=== PATIENT | male | born 1975 | race Hispanic/Latino ===

== ENCOUNTER 2018-04-20 14:30 | Emergency (ER) | payer SELFPAY | END 2018-04-20 16:00 | disposition home or self-care (01) | LOC: EDH 14:30 | DX: S62.316A Displaced fracture of base of fifth metacarpal bone, right hand, initial encounter for closed fracture (principal); E11.9 Type 2 diabetes mellitus without complications; I10 Essential (primary) hypertension; W22.03XA Walked into furniture, initial encounter; Y93.89 Activity, other specified; Y92.89 Other specified places as the place of occurrence of the external cause; Y99.8 Other external cause status | CPT/HCPCS: 29125; 73130 ==

== ENCOUNTER 2020-02-17 16:09 | Inpatient (IN) | payer OTHER, SELFPAY ==
[~2020-02-17] VITALS: Ht 182.9 cm; Wt 113.8 kg
[2020-02-17] MEDS ORDERED: ACETAMINOPHEN 325 MG TAB ONE (17:06)
[2020-02-17] MEDS ORDERED: AZITHROMYCIN 250 MG TABLET PO ONE (19:03)
[2020-02-17] MEDS ORDERED: CEFTRIAXONE SODIUM 1 GM ONE (19:03)
[2020-02-17] MEDS ORDERED: SODIUM CHLORIDE 0.9% 1000ML 1,000 ML IV SCH (19:20)
[2020-02-17] MEDS ORDERED: DIPHENHYDRAMINE HCL 25 MG CAPSULE PO PRN (19:30)
[2020-02-17] MEDS ORDERED: ZOLPIDEM TARTRATE 5 MG TAB PO PRN (19:30)
[2020-02-17] MEDS ORDERED: NITROGLYCERIN 0.4 MG SL TAB SL PRN (19:30)
[2020-02-17] MEDS ORDERED: ERGOCALCIFEROL (VITAMIN D2) 50,000 UNIT CAPSULE PO ONE (19:30)
[2020-02-17] MEDS ORDERED: ACETAMINOPHEN 325 MG TAB PO PRN ×2 (19:30)
[2020-02-17] MEDS ORDERED: MAG HYDROX/AL HYDROX/SIMETH ES 30 ML SUSP UDCUP PO PRN (19:30)
[2020-02-17] MEDS ORDERED: LACTULOSE 20 GM/30 ML UDCUP PO PRN (19:30)
[2020-02-17] MEDS ORDERED: MORPHINE SULFATE 2 MG/ML 1ML SYG IV PRN (19:30)
[2020-02-17] MEDS ORDERED: MAG HYDROX/AL HYDROX/SIMETH 60 ML, LIDOCAINE HCL 2% VISCOUS 60 ML, DIPHENHYDRAMINE HCL ... PO PRN ×3 (19:30)
[2020-02-17] MEDS ORDERED: MORPHINE SULFATE 4 MG/1ML SYG IV PRN (19:30)
[2020-02-17] MEDS ORDERED: ONDANSETRON HCL 4 MG/2 ML VIAL IV PRN (19:30)
[2020-02-17] MEDS ORDERED: DiphenhydrAMINE HCL 50 MG/ML VIAL IV PRN (19:30)
[2020-02-17] MEDS: CEFTRIAXONE SODIUM 1 GM IV SCH (19:30)
[2020-02-17] MEDS: AZITHROMYCIN 500MG+NS 250ML 250 ML IV SCH (19:30)
[2020-02-17] MEDS ORDERED: COMPOUND PO MISCELLANEOUS 1 EACH MISC MISC PRN (20:15)
[2020-02-17] MEDS ORDERED: ACETYLCYSTEINE 600 MG CAPSULE PO SCH (21:00)
[2020-02-17] MEDS: HEPARIN SODIUM 5000UNIT/ML 1ML VIAL SQ SCH (21:00)
[2020-02-17] MEDS: FAMOTIDINE/PF 20 MG/2 ML VIAL IV SCH (21:00)
[2020-02-17] MEDS ORDERED: GLUCAGON 1MG KIT 1 MG ML IM PRN (21:15)
[2020-02-17] MEDS ORDERED: DEXTROSE 50%-WATER 50 ML DISP.SYRIN IV PRN (21:15)
[2020-02-17] MEDS ORDERED: ERGOCALCIFEROL (VITAMIN D2) 50,000 UNIT CAPSULE ONE (21:18)
[2020-02-17] MEDS ORDERED: HEPARIN SODIUM 5000UNIT/ML 1ML VIAL ONE (21:18)
[2020-02-17] MEDS ORDERED: ACETYLCYSTEINE 600 MG CAPSULE ONE ×2 (21:18→21:24)
[2020-02-17] MEDS ORDERED: FAMOTIDINE/PF 20 MG/2 ML VIAL IV ONE (21:19)
[2020-02-17] MEDS: PHARMACY COMMUNICATION**REMDESIVIR ORDER MISC SCH (22:30)
[2020-02-17] MEDS: INSULIN HUMULIN R 100 UNIT/ML 3ML SQ SCH (22:47)
[2020-02-17] MEDS: DEXAMETHASONE SOD PHOSPHATE 4 MG/ML 1ML VIAL IVP SCH (22:48)
[2020-02-17] MEDS: GUAIFENESIN-DM 200/20 MG 10 ML PO PRN (23:00)
[2020-02-18] MEDS ORDERED: ASPI500T19 PO (00:19)
[2020-02-18] MEDS ORDERED: GLYB6TAB PO (00:19)
[2020-02-18] MEDS ORDERED: ENAL20TA PO (00:19)
[2020-02-18] MEDS ORDERED: METF-446 PO (00:19)
[2020-02-18 05:00] VITALS: BP 142/88
[2020-02-18] MEDS: PHARMACY COMMUNICATION**REMDESIVIR ORDER MISC SCH ×4 (06:30→21:30)
[2020-02-18] MEDS: INSULIN HUMULIN R 100 UNIT/ML 3ML SQ SCH ×4 (06:31→21:52)
[2020-02-18 08:30] VITALS: BP 139/83
[2020-02-18] MEDS: ASCORBIC ACID 500 MG TAB PO SCH (08:34)
[2020-02-18] MEDS: ZINC SULFATE 220 CAPSULE PO SCH (08:34)
[2020-02-18] MEDS: DEXAMETHASONE SOD PHOSPHATE 4 MG/ML 1ML VIAL IVP SCH (08:37)
[2020-02-18] MEDS: FAMOTIDINE/PF 20 MG/2 ML VIAL IV SCH ×2 (08:37→20:33)
[2020-02-18] MEDS: ACETYLCYSTEINE 20% 200MG/ML 4ML VIAL PO SCH ×2 (08:54→20:33)
[2020-02-18] MEDS: HEPARIN SODIUM 5000UNIT/ML 1ML VIAL SQ SCH ×3 (08:54→20:41)
[2020-02-18] MEDS ORDERED: PHARMACY COMMUNICATION MISC SCH (09:15)
[2020-02-18] MEDS ORDERED: IOHEXOL-350 75 ML VIAL IV ONE (11:59)
[2020-02-18] MEDS: GUAIFENESIN-DM 200/20 MG 10 ML PO PRN (13:55)
[2020-02-18] MEDS: BENZONATATE 100 MG CAPSULE PO PRN ×2 (13:55→21:20)
[2020-02-18 17:27] VITALS: BP 140/65
--- NOTE | 2020-02-18 17:42 | NUR ---
Patient given 1 unit of convalescent plasma on shift, tolerated well. Will continue to monitor for any changes.
[2020-02-18] MEDS: AZITHROMYCIN 500MG+NS 250ML 250 ML IV SCH (18:46)
[2020-02-18] MEDS: CEFTRIAXONE SODIUM 1 GM IV SCH (18:46)
[2020-02-18 19:30] VITALS: BP 121/78
[2020-02-19] VITALS (7 sets, daily range): BP systolic 125–162; BP diastolic 66–88
[2020-02-19] MEDS: PHARMACY COMMUNICATION**REMDESIVIR ORDER MISC SCH ×4 (03:30→19:26)
--- NOTE | 2020-02-19 04:00 | NUR ---
NURSING ROUNDS PT REPORTS NOT BEING ABLE TO BREATHE FULLY. SpO2 SATS AT 92% ON 4 LPM O2. PLACED PT ON PARTIAL NON-REBREATHER 10 LPM @ 70%, SpO2 INCREASED TO 96-97 %. PT REPORTS THAT HE FEELS "MEJOR" (BETTER). INFORMED PT THAT I WOULD RETURN TO CHECK ON THE PT, ENCOURAGED TO CALL ON THE CALL LIGHT FOR ANY ASSISTANCE- VERBALIZED UNDERSTANDING.
[2020-02-19] MEDS: INSULIN HUMULIN R 100 UNIT/ML 3ML SQ SCH ×4 (06:30→20:13)
[2020-02-19] MEDS: FAMOTIDINE/PF 20 MG/2 ML VIAL IV SCH ×2 (08:38→20:12)
[2020-02-19] MEDS: ACETYLCYSTEINE 20% 200MG/ML 4ML VIAL PO SCH ×2 (08:39→20:12)
[2020-02-19] MEDS: DEXAMETHASONE SOD PHOSPHATE 4 MG/ML 1ML VIAL IVP SCH (08:39)
[2020-02-19] MEDS: ZINC SULFATE 220 CAPSULE PO SCH (08:40)
[2020-02-19] MEDS: ASCORBIC ACID 500 MG TAB PO SCH (08:40)
[2020-02-19] MEDS: HEPARIN SODIUM 5000UNIT/ML 1ML VIAL SQ SCH ×3 (08:41→20:13)
[2020-02-19] MEDS ORDERED: ALBUTEROL INHALER 90MCG/INH IH PRN (08:45)
[2020-02-19] MEDS: ENALAPRIL MALEATE 10 MG TABLET PO SCH (11:44)
--- NOTE | 2020-02-19 17:37 | NUR ---
DCP CM spoke to pt discussed dc plans. Pt is independent prior to admission, lives at home with spouse. Denies any equipments/services. Feels safe to go back home, still drives, spouse able to assist with transportation and needs as necessary. As per pt brother Juarez Castellano JR able to assist as necessary. DC plan to home once stable. CM to cont to follow up. Addendum: 02/19/20 at 1740 by GEOVANNI SOMMERS LVN CM Amended: Links added.
[2020-02-19] MEDS: CEFTRIAXONE SODIUM 1 GM IV SCH (18:47)
[2020-02-19] MEDS: AZITHROMYCIN 500MG+NS 250ML 250 ML IV SCH (18:47)
[2020-02-20] MEDS: PHARMACY COMMUNICATION**REMDESIVIR ORDER MISC SCH ×4 (02:38→20:55)
[2020-02-20 04:00] VITALS: BP 147/76
[2020-02-20] MEDS: INSULIN HUMULIN R 100 UNIT/ML 3ML SQ SCH ×4 (05:14→20:52)
[2020-02-20 07:00] VITALS: BP 136/78
[2020-02-20] MEDS: FAMOTIDINE/PF 20 MG/2 ML VIAL IV SCH ×2 (08:56→20:51)
[2020-02-20] MEDS: ACETYLCYSTEINE 20% 200MG/ML 4ML VIAL PO SCH ×2 (08:56→20:52)
[2020-02-20] MEDS: DEXAMETHASONE SOD PHOSPHATE 4 MG/ML 1ML VIAL IVP SCH (08:56)
[2020-02-20] MEDS: ZINC SULFATE 220 CAPSULE PO SCH (08:57)
[2020-02-20] MEDS: ASCORBIC ACID 500 MG TAB PO SCH (08:57)
[2020-02-20] MEDS: ENALAPRIL MALEATE 10 MG TABLET PO SCH (08:57)
[2020-02-20] MEDS ORDERED: ASPIRIN 325MG EC TAB 325 MG TABLET.DR PO SCH (09:00)
[2020-02-20] MEDS: HEPARIN SODIUM 5000UNIT/ML 1ML VIAL SQ SCH ×3 (10:15→20:52)
[2020-02-20 11:00] VITALS: BP 132/65
[2020-02-20] MEDS ORDERED: PHARMACY COMMUNICATION MISC SCH (13:45)
[2020-02-20] MEDS ORDERED: REMDESIVIR (EUA) 520 200 MG in SODIUM CHLORIDE 0.9% 250 ML IV ONE (14:00)
[2020-02-20] MEDS ORDERED: COMPOUND IV REFRIGERATED 1 EACH IVSOLN MISC PRN (14:00)
[2020-02-20 16:00] VITALS: BP 143/67
[2020-02-20] MEDS: CEFTRIAXONE SODIUM 1 GM IV SCH (18:49)
[2020-02-20 20:42] VITALS: BP 137/76
[2020-02-20 23:25] VITALS: BP 131/71
[2020-02-21] MEDS: PHARMACY COMMUNICATION**REMDESIVIR ORDER MISC SCH ×4 (03:07→19:21)
[2020-02-21 03:30] VITALS: BP 140/68
[2020-02-21] MEDS: PHARMACY COMMUNICATION MISC SCH (04:45)
[2020-02-21] MEDS: INSULIN HUMULIN R 100 UNIT/ML 3ML SQ SCH ×4 (04:45→20:04)
[2020-02-21] MEDS: ZINC SULFATE 220 CAPSULE PO SCH (08:26)
[2020-02-21] MEDS: ENALAPRIL MALEATE 10 MG TABLET PO SCH (08:27)
[2020-02-21] MEDS: ASCORBIC ACID 500 MG TAB PO SCH (08:27)
[2020-02-21] MEDS: ACETYLCYSTEINE 20% 200MG/ML 4ML VIAL PO SCH ×2 (08:28→19:55)
[2020-02-21] MEDS: DEXAMETHASONE SOD PHOSPHATE 4 MG/ML 1ML VIAL IVP SCH (08:28)
[2020-02-21] MEDS: FAMOTIDINE/PF 20 MG/2 ML VIAL IV SCH ×2 (08:28→19:55)
[2020-02-21 08:30] VITALS: BP 133/74
[2020-02-21] MEDS: ENOXAPARIN SODIUM 60 MG/0.6 ML SQ SCH ×2 (08:40→09:08)
[2020-02-21 12:56] VITALS: BP 119/66
[2020-02-21] MEDS: REMDESIVIR (EUA) 520 100 MG in SODIUM CHLORIDE 0.9% 250 ML IV SCH (13:13)
[2020-02-21 16:30] VITALS: BP 114/51
[2020-02-21 20:38] VITALS: BP 137/71
[2020-02-22] VITALS (7 sets, daily range): BP systolic 97–128; BP diastolic 59–76
[2020-02-22] MEDS: PHARMACY COMMUNICATION**REMDESIVIR ORDER MISC SCH ×4 (03:26→19:38)
[2020-02-22] MEDS: PHARMACY COMMUNICATION MISC SCH (03:32)
[2020-02-22] MEDS: INSULIN HUMULIN R 100 UNIT/ML 3ML SQ SCH ×4 (06:07→20:16)
[2020-02-22] MEDS: FAMOTIDINE/PF 20 MG/2 ML VIAL IV SCH ×2 (09:48→20:15)
[2020-02-22] MEDS: ASCORBIC ACID 500 MG TAB PO SCH (09:49)
[2020-02-22] MEDS: ENALAPRIL MALEATE 10 MG TABLET PO SCH (09:49)
[2020-02-22] MEDS: DEXAMETHASONE SOD PHOSPHATE 4 MG/ML 1ML VIAL IVP SCH (09:49)
[2020-02-22] MEDS: ACETYLCYSTEINE 20% 200MG/ML 4ML VIAL PO SCH ×2 (09:49→20:15)
[2020-02-22] MEDS: ZINC SULFATE 220 CAPSULE PO SCH (09:49)
[2020-02-22] MEDS: ENOXAPARIN SODIUM 60 MG/0.6 ML SQ SCH (09:50)
[2020-02-22] MEDS ORDERED: SODIUM POLYSTYRENE SULFONATE 15 GM/60 ML ML PO SCH (14:40)
[2020-02-22] MEDS: REMDESIVIR (EUA) 520 100 MG in SODIUM CHLORIDE 0.9% 250 ML IV SCH (14:46)
[2020-02-22] MEDS: GUAIFENESIN-DM 200/20 MG 10 ML PO PRN (20:16)
[2020-02-22] MEDS: BENZONATATE 100 MG CAPSULE PO PRN (20:16)
[2020-02-23] MEDS: PHARMACY COMMUNICATION**REMDESIVIR ORDER MISC SCH ×5 (03:30→19:58)
[2020-02-23 04:00] VITALS: BP 130/85
[2020-02-23] MEDS: PHARMACY COMMUNICATION MISC SCH (04:57)
[2020-02-23] MEDS: INSULIN HUMULIN R 100 UNIT/ML 3ML SQ SCH ×4 (05:42→19:49)
--- NOTE | 2020-02-23 05:43 | NUR ---
Assessment Overnight, the patient slept majority of the time in prone position. He is still on the partial Non-Rebreather with O2 maintaining above 90s. He had 2 large bowel movements. Patient stated that he does not have any needs or concerns at the moment. Vitals are stable and he is being closely monitored.
[2020-02-23] MEDS ORDERED: LOPERAMIDE HCL 2 MG CAP PO PRN (08:00)
[2020-02-23 08:01] VITALS: BP 130/71
[2020-02-23] MEDS ORDERED: ASPIRIN 500 MG PO SCH (09:00)
[2020-02-23] MEDS: ZINC SULFATE 220 CAPSULE PO SCH (09:08)
[2020-02-23] MEDS: ENALAPRIL MALEATE 10 MG TABLET PO SCH (09:08)
[2020-02-23] MEDS: FAMOTIDINE/PF 20 MG/2 ML VIAL IV SCH ×2 (09:09→19:47)
[2020-02-23] MEDS: ASCORBIC ACID 500 MG TAB PO SCH (09:09)
[2020-02-23] MEDS: DEXAMETHASONE SOD PHOSPHATE 4 MG/ML 1ML VIAL IVP SCH (09:09)
[2020-02-23] MEDS: ACETYLCYSTEINE 20% 200MG/ML 4ML VIAL PO SCH ×2 (09:09→19:47)
[2020-02-23] MEDS: ENOXAPARIN SODIUM 60 MG/0.6 ML SQ SCH (09:10)
[2020-02-23 12:23] VITALS: BP 115/62
[2020-02-23] MEDS: REMDESIVIR (EUA) 520 100 MG in SODIUM CHLORIDE 0.9% 250 ML IV SCH (14:45)
[2020-02-23 15:45] VITALS: BP 108/64
[2020-02-23 20:17] VITALS: BP 107/68
[2020-02-24] VITALS (7 sets, daily range): BP systolic 100–120; BP diastolic 53–74
[2020-02-24] MEDS: PHARMACY COMMUNICATION MISC SCH (05:00)
[2020-02-24] MEDS: INSULIN HUMULIN R 100 UNIT/ML 3ML SQ SCH ×4 (05:54→19:38)
--- NOTE | 2020-02-24 06:06 | NUR ---
Weaning O2 Last night the patient was weaned from a partial non-rebreather to a Venti-Mask fio2 50% 15 LPM. He was tolerating the venti-mask for a couple of hours, but this morning he had to be replaced back onto the Non-Rebreather because his O2 sats started to drop.
[2020-02-24] MEDS: BENZONATATE 100 MG CAPSULE PO PRN ×2 (06:09→19:39)
[2020-02-24] MEDS: GUAIFENESIN-DM 200/20 MG 10 ML PO PRN ×2 (06:09→19:39)
[2020-02-24] MEDS: PHARMACY COMMUNICATION**REMDESIVIR ORDER MISC SCH ×3 (09:30→19:38)
[2020-02-24] MEDS: ZINC SULFATE 220 CAPSULE PO SCH (09:56)
[2020-02-24] MEDS: ENALAPRIL MALEATE 10 MG TABLET PO SCH (09:57)
[2020-02-24] MEDS: ACETYLCYSTEINE 20% 200MG/ML 4ML VIAL PO SCH ×2 (09:57→19:38)
[2020-02-24] MEDS: ASCORBIC ACID 500 MG TAB PO SCH (09:57)
[2020-02-24] MEDS: ENOXAPARIN SODIUM 60 MG/0.6 ML SQ SCH (09:58)
[2020-02-24] MEDS: FAMOTIDINE/PF 20 MG/2 ML VIAL IV SCH ×2 (09:58→19:38)
[2020-02-24] MEDS: DEXAMETHASONE SOD PHOSPHATE 4 MG/ML 1ML VIAL IVP SCH (09:58)
[2020-02-24] MEDS: REMDESIVIR (EUA) 520 100 MG in SODIUM CHLORIDE 0.9% 250 ML IV SCH (14:20)
[2020-02-25] MEDS: PHARMACY COMMUNICATION MISC SCH (03:39)
[2020-02-25 03:54] VITALS: BP 131/69
[2020-02-25] MEDS: BENZONATATE 100 MG CAPSULE PO PRN ×2 (03:56→19:58)
[2020-02-25] MEDS: GUAIFENESIN-DM 200/20 MG 10 ML PO PRN ×2 (03:56→19:58)
[2020-02-25] MEDS: INSULIN HUMULIN R 100 UNIT/ML 3ML SQ SCH ×4 (05:23→19:59)
[2020-02-25 08:00] VITALS: BP 113/49
[2020-02-25] MEDS: ZINC SULFATE 220 CAPSULE PO SCH (08:26)
[2020-02-25] MEDS: DEXAMETHASONE SOD PHOSPHATE 4 MG/ML 1ML VIAL IVP SCH (08:27)
[2020-02-25] MEDS: FAMOTIDINE/PF 20 MG/2 ML VIAL IV SCH ×2 (08:27→19:58)
[2020-02-25] MEDS: ACETYLCYSTEINE 20% 200MG/ML 4ML VIAL PO SCH ×2 (08:27→19:58)
[2020-02-25] MEDS: ENALAPRIL MALEATE 10 MG TABLET PO SCH (08:27)
[2020-02-25] MEDS: ASCORBIC ACID 500 MG TAB PO SCH (08:27)
[2020-02-25] MEDS: ENOXAPARIN SODIUM 60 MG/0.6 ML SQ SCH (08:30)
[2020-02-25 11:00] VITALS: BP 102/59
[2020-02-25 16:00] VITALS: BP 111/66
[2020-02-25 19:41] VITALS: BP 115/60
[2020-02-25 23:28] VITALS: BP 124/63
[2020-02-26 03:13] VITALS: BP 124/73
[2020-02-26 08:15] VITALS: BP 127/70
[2020-02-26] MEDS: ENALAPRIL MALEATE 10 MG TABLET PO SCH (08:29)
[2020-02-26] MEDS: FAMOTIDINE/PF 20 MG/2 ML VIAL IV SCH ×2 (08:29→20:12)
[2020-02-26] MEDS: ZINC SULFATE 220 CAPSULE PO SCH (08:29)
[2020-02-26] MEDS: ASCORBIC ACID 500 MG TAB PO SCH (08:29)
[2020-02-26] MEDS: DEXAMETHASONE SOD PHOSPHATE 4 MG/ML 1ML VIAL IVP SCH (08:29)
[2020-02-26] MEDS: ACETYLCYSTEINE 20% 200MG/ML 4ML VIAL PO SCH ×2 (08:30→20:12)
[2020-02-26] MEDS: ENOXAPARIN SODIUM 60 MG/0.6 ML SQ SCH (08:31)
[2020-02-26] MEDS: INSULIN HUMULIN R 100 UNIT/ML 3ML SQ SCH ×4 (08:40→20:13)
[2020-02-26 11:12] VITALS: BP 106/66
--- NOTE | 2020-02-26 13:20 | NUR ---
RDSCREEN - LOS X 9 Pt admitted with COVID-19 PNA. History of DM and HTN. Pt tolerating Heart Healthy, 75gm CC Diet order with no report of GI distress. Good PO intake at 100%. BG 219. Alb 2.8. Obesity Class I. Zinc, Vitamin C, DM medications in place. Acute hypoxemic respiratory distress. Recommend modify to 60gm CCD Recommend 60mL ProMod QD RD to continue to monitor. Please notify as additional nutrition concerns arise. Thank you. Addendum: 02/26/20 at [address] RD Amended: Links added.
[2020-02-26 15:30] VITALS: BP 92/50
[2020-02-26 19:40] VITALS: BP 119/61
[2020-02-26] MEDS: BENZONATATE 100 MG CAPSULE PO PRN (20:14)
[2020-02-26] MEDS: GUAIFENESIN-DM 200/20 MG 10 ML PO PRN (20:14)
[2020-02-26 23:41] VITALS: BP 125/58
[2020-02-27 03:46] VITALS: BP 123/67
[2020-02-27] MEDS: INSULIN HUMULIN R 100 UNIT/ML 3ML SQ SCH ×5 (05:37→19:56)
[2020-02-27] MEDS: FAMOTIDINE/PF 20 MG/2 ML VIAL IV SCH ×2 (08:09→19:43)
[2020-02-27] MEDS: ACETYLCYSTEINE 20% 200MG/ML 4ML VIAL PO SCH ×2 (08:10→19:43)
[2020-02-27] MEDS: DEXAMETHASONE SOD PHOSPHATE 4 MG/ML 1ML VIAL IVP SCH (08:10)
[2020-02-27] MEDS: ZINC SULFATE 220 CAPSULE PO SCH (08:11)
[2020-02-27] MEDS: ASCORBIC ACID 500 MG TAB PO SCH (08:11)
[2020-02-27] MEDS: ENALAPRIL MALEATE 10 MG TABLET PO SCH (08:11)
[2020-02-27] MEDS: ENOXAPARIN SODIUM 60 MG/0.6 ML SQ SCH (08:12)
[2020-02-27 09:04] VITALS: BP 114/69
[2020-02-27 11:34] VITALS: BP 108/67
--- NOTE | 2020-02-27 13:06 | NUR ---
CM Note: [facility] CM spoke to pt, discussed regarding Alternative Care Site w/[place] [facility] [place] as patient continues w/nonrebreather 15L w/O2 Sat 945, agreeable for transfer if patient qualify. Answered questions. Patient aware ACS is free, no charge to patient. Patient verbalized he would like to talk to his first before deciding, requested for CM to call back tomorrow. Dr Early made aware. CM to cont to follow up.
[2020-02-27 15:37] VITALS: BP 121/61
[2020-02-27 19:20] VITALS: BP 106/59
[2020-02-27] MEDS: GUAIFENESIN-DM 200/20 MG 10 ML PO PRN (19:49)
[2020-02-27] MEDS: BENZONATATE 100 MG CAPSULE PO PRN (19:49)
[2020-02-27] MEDS ORDERED: INSULIN GLARGINE 100 UNITS/ML 10 ML VIAL SQ SCH (21:00)
[2020-02-27 23:23] VITALS: BP 99/66
[2020-02-28 03:30] VITALS: BP 113/65
[2020-02-28] MEDS: INSULIN HUMULIN R 100 UNIT/ML 3ML SQ SCH ×6 (05:34→16:28)
[2020-02-28 08:01] VITALS: BP 109/68
[2020-02-28] MEDS: DEXAMETHASONE SOD PHOSPHATE 4 MG/ML 1ML VIAL IVP SCH (08:01)
[2020-02-28] MEDS: ACETYLCYSTEINE 20% 200MG/ML 4ML VIAL PO SCH (08:01)
[2020-02-28] MEDS: FAMOTIDINE/PF 20 MG/2 ML VIAL IV SCH (08:01)
[2020-02-28] MEDS: ENALAPRIL MALEATE 10 MG TABLET PO SCH (08:02)
[2020-02-28] MEDS: ASCORBIC ACID 500 MG TAB PO SCH (08:02)
[2020-02-28] MEDS: ZINC SULFATE 220 CAPSULE PO SCH (08:02)
[2020-02-28] MEDS: ENOXAPARIN SODIUM 60 MG/0.6 ML SQ SCH (08:03)
[2020-02-28 12:16] VITALS: BP 116/58
[2020-02-28] MEDS ORDERED: APIX2.5T PO (14:40)
[2020-02-28] MEDS ORDERED: DEXA6TAB PO (14:40)
--- NOTE | 2020-02-28 17:36 | NUR ---
discharge notes Pt d/c home, on room air. vss. iv removed. d/c with prescription and d/c instruction. tele pack removed and return. home with privte vehicle and son.
== END 2020-02-28 17:20 | disposition home or self-care (01) | DRG 871 ==
LOC: EDH 16:09 → EDHIP 16:10 → 4AH 22:43
PROVIDERS: ADMIT Internal Medicine; ATTEND Internal Medicine
PROC: XW13325 Transfusion of Convalescent Plasma (Nonautologous) into Peripheral Vein, Percutaneous Approach, New Technology Group 5 (ICD-10-PCS; 2020-02-18)
PROC: XW033E5 Introduction of Remdesivir Anti-infective into Peripheral Vein, Percutaneous Approach, New Technology Group 5 (ICD-10-PCS; 2020-02-20)
PROC: XW033E5 Introduction of Remdesivir Anti-infective into Peripheral Vein, Percutaneous Approach, New Technology Group 5 (ICD-10-PCS; principal; 2020-02-24)
DX: A41.9 Sepsis, unspecified organism (principal); U07.1 COVID-19; E87.1 Hypo-osmolality and hyponatremia; N17.9 Acute kidney failure, unspecified; R65.20 Severe sepsis without septic shock; I10 Essential (primary) hypertension; Z83.3 Family history of diabetes mellitus; Z82.49 Family history of ischemic heart disease and other diseases of the circulatory system; E87.5 Hyperkalemia; E11.65 Type 2 diabetes mellitus with hyperglycemia; R19.7 Diarrhea, unspecified; E78.5 Hyperlipidemia, unspecified; R09.02 Hypoxemia; Z68.35 Body mass index [BMI] 35.0-35.9, adult; E66.9 Obesity, unspecified; D64.9 Anemia, unspecified; R06.03 Acute respiratory distress
CPT/HCPCS: 36415; 36430; 71045; 71275; 80048; 80053; 82550; 82728; 82948; 83036; 83605; 83615; 83874; 84145; 84484; 85025; 85027; 85378; 85610; 85730; 86140; 86850; 86900; 86901; 86927; 87040; 87426; 87486; 87581; 87633; 87798; 93005; 94760; 97039; A4606; G0378; J0456; J0696; J1100; J1644; J1650; J1815; J3490; J7050; J7608; Q0163; Q9967

== ENCOUNTER 2020-03-02 20:44 | Inpatient (IN) | payer OTHER, SELFPAY ==
[~2020-03-02] VITALS: Ht 182.9 cm; Wt 64.3 kg
[~2020-03-02 20:44] MED LIST: APIX2.5T PO; DEXA6TAB PO; ENAL20TA PO; GLYB6TAB PO; METF-446 PO
[2020-03-02 22:11] LABS: ABG BASE EXCESS 0.3 mmol/L (-2.0-3.0); ABG PCO2 36 mmHg (35-48)
[2020-03-02 22:52] LABS: INR 0.95 (0.85-1.15); PARTIAL THROMBOPLASTIN TIME 30.2 SEC (26.3-35.5); PROTHROMBIN TIME 10.3 SEC (9.6-11.6)
[2020-03-02 22:57] LABS: CREATININE 1.4 mg/dL (0.5-1.5); POTASSIUM 4.9 mmol/L (3.5-5.1)
[2020-03-02 23:02] LABS: ALBUMIN 3.6 g/dL (3.5-5.0); BILIRUBIN,TOTAL 0.4 mg/dL (0.2-1.0); CRP QUANTITATIVE 2.1 mg/L (0.00-9.0); TOTAL PROTEIN, SERUM 8.1 g/dL (6.0-8.3)
[2020-03-02] MEDS ORDERED: CEFTRIAXONE SODIUM 2 GM VIAL ONE (23:17)
[2020-03-02] MEDS ORDERED: AZITHROMYCIN 500MG+NS 250ML 250 ML IV ONE (23:18)
[2020-03-02] MEDS ORDERED: SODIUM CHLORIDE 0.9% 50 ML IV ONE (23:20)
[2020-03-02 23:49] LABS: BASOPHILS % (AUTO) 0.2 % (0.0-5.0); HEMATOCRIT 41.2 % (42-54); LYMPHOCYTES % (AUTO) 12.6 % (21.0-51.0); MEAN CORPUSCULAR HEMOGLOBIN 29.2 pg (27.0-33.0); MEAN CORPUSCULAR HGB CONC 34.7 g/dL (32.0-36.0); MEAN CORPUSCULAR VOLUME 84.1 fL (79-99); MONOCYTES % (AUTO) 6.4 % (3.0-13.0); NEUTROPHILS % (AUTO) 79.4 % (40.0-77.0); PLATELET COUNT (AUTO) 514 K/uL (130-400); RED CELL DISTRIBUTION WIDTH 12.3 % (11.0-15.5); WHITE BLOOD COUNT (AUTO) 14.8 K/uL (4.8-10.8)
[2020-03-03] MEDS ORDERED: ZOLPIDEM TARTRATE 5 MG TAB PO PRN
[2020-03-03] MEDS ORDERED: LACTULOSE 20 GM/30 ML UDCUP PO PRN
[2020-03-03] MEDS ORDERED: CEFEPIME HCL 2 GM VIAL IVP SCH
[2020-03-03] MEDS ORDERED: GUAIFENESIN-DM 200/20 MG 10 ML PO PRN
[2020-03-03] MEDS ORDERED: MAG HYDROX/AL HYDROX/SIMETH 30 ML, LIDOCAINE HCL 2% VISCOUS 30 ML, DIPHENHYDRAMINE HCL ... PO PRN ×3
[2020-03-03] MEDS ORDERED: MAG HYDROX/AL HYDROX/SIMETH ES 30 ML SUSP UDCUP PO PRN
[2020-03-03] MEDS ORDERED: ACETAMINOPHEN 325 MG TAB PO PRN ×2
[2020-03-03] MEDS ORDERED: NITROGLYCERIN 0.4 MG SL TAB SL PRN
[2020-03-03] MEDS ORDERED: DiphenhydrAMINE HCL 50 MG/ML VIAL IV PRN
[2020-03-03] MEDS ORDERED: ERGOCALCIFEROL (VITAMIN D2) 50,000 UNIT CAPSULE PO ONE
[2020-03-03] MEDS ORDERED: ONDANSETRON HCL 4 MG/2 ML VIAL IV PRN
[2020-03-03] MEDS ORDERED: VANCOMYCIN PROTOCOL PER PHARMACY IV PRN
[2020-03-03] MEDS ORDERED: DIPHENHYDRAMINE HCL 25 MG CAPSULE PO PRN
[2020-03-03] MEDS ORDERED: MORPHINE SULFATE 4 MG/1ML SYG IV PRN
[2020-03-03] MEDS ORDERED: DEXAMETHASONE SOD PHOSPHATE 4 MG/ML 1ML VIAL IVP SCH
[2020-03-03] MEDS ORDERED: BENZONATATE 100 MG CAPSULE PO PRN
[2020-03-03] MEDS ORDERED: MORPHINE SULFATE 2 MG/ML 1ML SYG IV PRN
[2020-03-03] MEDS ORDERED: LIDOCAINE HCL 2% VISCOUS 30 ML, MAG HYDROX/AL HYDROX/SIMETH 30 ML, BELLADONNA-PHENOBARB... PO PRN ×3
[2020-03-03] MEDS ORDERED: IOHEXOL-350 75 ML VIAL IV ONE (00:27)
[2020-03-03] MEDS ORDERED: DEXAMETHASONE SOD PHOSPHATE 10MG/ML 1ML VIAL ONE (00:35)
[2020-03-03] MEDS ORDERED: ERGOCALCIFEROL (VITAMIN D2) 50,000 UNIT CAPSULE ONE (00:36)
[2020-03-03] MEDS ORDERED: HEPARIN 25000 UNITS/250 ML D5W 250 ML IV SCH (01:00)
[2020-03-03] MEDS ORDERED: PHARMACY COMMUNICATION**REMDESIVIR ORDER MISC SCH (01:15)
[2020-03-03] MEDS ORDERED: DEXTROSE 50%-WATER 50 ML DISP.SYRIN IV PRN (01:15)
[2020-03-03] MEDS ORDERED: GLUCAGON 1MG KIT 1 MG ML IM PRN (01:15)
[2020-03-03] MEDS ORDERED: HEPARIN SODIUM 5000UNIT/ML 1ML VIAL ONE (01:45)
[2020-03-03] MEDS ORDERED: HEPARIN 25000 UNITS/250 ML D5W 250 ML IV ONE (01:46)
--- NOTE | 2020-03-03 02:30 | NUR ---
Patient received from ED accompanied nurse to room 411. Patient assisted to bed and made comfortable. Oriented to room and call light system. Assessment and nursing data base completed. Heparin drip started as ordered per protocol. 17u/kg/hr. Now infusing at 19.04ml/hr. No acute distress at this time, pt is in stable condition. Following POC.
[2020-03-03 03:19] LABS: HEMOGLOBIN A1C 9.5 % (4.0-6.0)
[2020-03-03 03:26] LABS: ALANINE AMINOTRANSFERASE 50 U/L (12-78); ALBUMIN 3.2 g/dL (3.5-5.0); ASPARTATE AMINOTRANSFERASE 16 U/L (10-37); BILIRUBIN,TOTAL 0.4 mg/dL (0.2-1.0); CARBON DIOXIDE 30 mmol/L (21-32); CHLORIDE 96 mmol/L (101-111); CREATININE 1.1 mg/dL (0.5-1.5); GLOMERULAR FILTR. RATE CALC 77 mL/min (>60); GLUCOSE,RANDOM 235 mg/dL (70-105); LACTATE DEHYDROGENASE 169 U/L (81-234); POTASSIUM 4.6 mmol/L (3.5-5.1); SODIUM SERUM 132 mmol/L (136-145); TOTAL PROTEIN, SERUM 7.3 g/dL (6.0-8.3); UREA NITROGEN, BLOOD 21 mg/dL (7-18)
[2020-03-03 03:34] LABS: BASOPHILS % (AUTO) 0.2 % (0.0-5.0); HEMATOCRIT 37.4 % (42-54); LYMPHOCYTES % (AUTO) 11.5 % (21.0-51.0); MEAN CORPUSCULAR HEMOGLOBIN 29.1 pg (27.0-33.0); MEAN CORPUSCULAR HGB CONC 34.8 g/dL (32.0-36.0); MEAN CORPUSCULAR VOLUME 83.7 fL (79-99); MONOCYTES % (AUTO) 5.2 % (3.0-13.0); NEUTROPHILS % (AUTO) 81.8 % (40.0-77.0); PLATELET COUNT (AUTO) 507 K/uL (130-400); RED BLOOD CELL COUNT(AUTO) 4.47 MIL/uL (4.50-6.20); RED CELL DISTRIBUTION WIDTH 12.4 % (11.0-15.5); WHITE BLOOD COUNT (AUTO) 13.3 K/uL (4.8-10.8)
[2020-03-03 04:50] VITALS: BP 128/76
[2020-03-03] MEDS: INSULIN HUMULIN R 100 UNIT/ML 3ML SQ SCH ×6 (06:50→20:37)
[2020-03-03 07:30] VITALS: BP 128/87
[2020-03-03] MEDS ORDERED: FAMOTIDINE/PF 20 MG/2 ML VIAL IV SCH (09:00)
[2020-03-03] MEDS ORDERED: HEPARIN SODIUM 5000UNIT/ML 1ML VIAL SQ SCH (09:00)
[2020-03-03] MEDS: ASCORBIC ACID 500 MG TAB PO SCH (09:13)
[2020-03-03] MEDS: FAMOTIDINE/PF 20 MG/2 ML VIAL IV SCH ×2 (09:14→20:37)
[2020-03-03] MEDS: ZINC SULFATE 220 CAPSULE PO SCH (09:14)
--- NOTE | 2020-03-03 10:42 | NUR ---
DCP CM spoke to pt discussed dc plans. Pt is independent prior to admission, lives at home with spouse and son. Denies any equipments/services. Feels safe to go back home, still drives and works, spouse and son able to assist with transportation and needs as necessary. Pt is a readmission, was dc'd home recently. CM explained [facility] last admissoin, but pt wanted to talk to spouse first and decided to go home after. Informed pt of the ACS, at this time pt does not want to decide yet and wanted to feel better first. DC plan to home once stable. CM to cont to follow up. Addendum: 03/03/20 at 1046 by GEOVANNI SOMMERS LVN CM Amended: Links added.
[2020-03-03] MEDS ORDERED: SODIUM CHLORIDE 0.9% 250 ML IV ONE (10:48)
[2020-03-03 11:00] VITALS: BP 137/90
[2020-03-03 16:00] VITALS: BP 125/64
[2020-03-03 17:27] LABS: APPEARANCE,URINE Clear (CLEAR); BILIRUBIN,URINE Negative (NEGATIVE); COLOR,URINE Yellow (YELLOW); GLUCOSE, URINE (UA) Negative (NEGATIVE); KETONES,URINE Negative (NEGATIVE); LEUKOCYTE ESTERASE ,URINE Negative (NEGATIVE); NITRATE,URINE Negative (NEGATIVE); OCCULT BLOOD,URINE Negative (NEGATIVE); PROTEIN,URINE Negative (NEGATIVE); UROBILINOGEN,URINE 0.2 mg/dL (0.2-1.0)
[2020-03-03 19:30] VITALS: BP 125/66
[2020-03-03] MEDS: INSULIN GLARGINE 100 UNITS/ML 10 ML VIAL SQ SCH (20:35)
[2020-03-03] MEDS: APIXABAN 2.5 MG TABLET PO SCH (20:38)
[2020-03-03 23:54] VITALS: BP 155/84
[2020-03-04] MEDS: DEXAMETHASONE SOD PHOSPHATE 4 MG/ML 1ML VIAL IVP SCH (00:46)
[2020-03-04 04:00] VITALS: BP 139/69
[2020-03-04] MEDS: INSULIN HUMULIN R 100 UNIT/ML 3ML SQ SCH ×7 (06:31→20:21)
[2020-03-04 06:47] LABS: BASOPHILS % (AUTO) 0.3 % (0.0-5.0); EOSINOPHILS % (AUTO) 0.1 % (0.0-8.0); HEMATOCRIT 39.6 % (42-54); LYMPHOCYTES % (AUTO) 12.6 % (21.0-51.0); MEAN CORPUSCULAR HEMOGLOBIN 29.1 pg (27.0-33.0); MEAN CORPUSCULAR HGB CONC 33.8 g/dL (32.0-36.0); MEAN CORPUSCULAR VOLUME 86.1 fL (79-99); MONOCYTES % (AUTO) 2.4 % (3.0-13.0); NEUTROPHILS % (AUTO) 83.9 % (40.0-77.0); PLATELET COUNT (AUTO) 425 K/uL (130-400); RED CELL DISTRIBUTION WIDTH 12.4 % (11.0-15.5); WHITE BLOOD COUNT (AUTO) 9.4 K/uL (4.8-10.8)
[2020-03-04 07:30] LABS: ALANINE AMINOTRANSFERASE 61 U/L (12-78); ALBUMIN 3.3 g/dL (3.5-5.0); ASPARTATE AMINOTRANSFERASE 21 U/L (10-37); BILIRUBIN,TOTAL 0.5 mg/dL (0.2-1.0); CARBON DIOXIDE 30 mmol/L (21-32); CHLORIDE 97 mmol/L (101-111); CREATININE 1.1 mg/dL (0.5-1.5); GLOMERULAR FILTR. RATE CALC 77 mL/min (>60); GLUCOSE,RANDOM 186 mg/dL (70-105); LACTATE DEHYDROGENASE 185 U/L (81-234); POTASSIUM 4.8 mmol/L (3.5-5.1); SODIUM SERUM 134 mmol/L (136-145); TOTAL PROTEIN, SERUM 7.5 g/dL (6.0-8.3); UREA NITROGEN, BLOOD 26 mg/dL (7-18)
[2020-03-04 07:40] LABS: CRP QUANTITATIVE < 2.00 mg/L (0.00-9.0)
[2020-03-04] MEDS: FAMOTIDINE/PF 20 MG/2 ML VIAL IV SCH ×2 (08:39→20:18)
[2020-03-04] MEDS: APIXABAN 2.5 MG TABLET PO SCH ×2 (08:39→20:18)
[2020-03-04] MEDS: ZINC SULFATE 220 CAPSULE PO SCH (08:40)
[2020-03-04] MEDS: ASCORBIC ACID 500 MG TAB PO SCH (08:40)
[2020-03-04 08:51] VITALS: BP 140/78
[2020-03-04 11:22] VITALS: BP 21/80
[2020-03-04 16:09] VITALS: BP 133/79
--- NOTE | 2020-03-04 17:14 | NUR ---
Pharmacy profile reviewed Nurse notified pharmacy that per Dr. Cuello the patient is does not qualify for Remedesivir.
[2020-03-04 20:00] VITALS: BP 141/86
[2020-03-04] MEDS: INSULIN GLARGINE 100 UNITS/ML 10 ML VIAL SQ SCH (20:21)
[2020-03-04 23:45] VITALS: BP 137/75
[2020-03-05] MEDS: DEXAMETHASONE SOD PHOSPHATE 4 MG/ML 1ML VIAL IVP SCH (00:10)
[2020-03-05 04:00] VITALS: BP 142/74
[2020-03-05 04:42] LABS: BASOPHILS % (AUTO) 0.2 % (0.0-5.0); EOSINOPHILS % (AUTO) 0.1 % (0.0-8.0); HEMATOCRIT 39.1 % (42-54); LYMPHOCYTES % (AUTO) 13.8 % (21.0-51.0); MEAN CORPUSCULAR HEMOGLOBIN 29.1 pg (27.0-33.0); MEAN CORPUSCULAR HGB CONC 34.3 g/dL (32.0-36.0); NEUTROPHILS % (AUTO) 81.7 % (40.0-77.0); PLATELET COUNT (AUTO) 422 K/uL (130-400); RED CELL DISTRIBUTION WIDTH 12.7 % (11.0-15.5); WHITE BLOOD COUNT (AUTO) 10.4 K/uL (4.8-10.8)
[2020-03-05 05:22] LABS: ALANINE AMINOTRANSFERASE 77 U/L (12-78); ALBUMIN 3.6 g/dL (3.5-5.0); ASPARTATE AMINOTRANSFERASE 21 U/L (10-37); BILIRUBIN,TOTAL 0.6 mg/dL (0.2-1.0); CARBON DIOXIDE 29 mmol/L (21-32); CHLORIDE 94 mmol/L (101-111); CREATININE 1.3 mg/dL (0.5-1.5); GLOMERULAR FILTR. RATE CALC 63 mL/min (>60); GLUCOSE,RANDOM 250 mg/dL (70-105); LACTATE DEHYDROGENASE 202 U/L (81-234); POTASSIUM 4.9 mmol/L (3.5-5.1); SODIUM SERUM 131 mmol/L (136-145); TOTAL PROTEIN, SERUM 7.9 g/dL (6.0-8.3); UREA NITROGEN, BLOOD 28 mg/dL (7-18)
[2020-03-05] MEDS: INSULIN HUMULIN R 100 UNIT/ML 3ML SQ SCH ×4 (07:12→12:12)
[2020-03-05] MEDS: ASCORBIC ACID 500 MG TAB PO SCH (09:20)
[2020-03-05] MEDS: ZINC SULFATE 220 CAPSULE PO SCH (09:20)
[2020-03-05] MEDS: APIXABAN 2.5 MG TABLET PO SCH (09:20)
[2020-03-05] MEDS: FAMOTIDINE/PF 20 MG/2 ML VIAL IV SCH (09:20)
[2020-03-05 09:48] VITALS: BP 131/82
[2020-03-05 13:06] VITALS: BP 138/84
== END 2020-03-05 17:52 | disposition home or self-care (01) | DRG 177 ==
LOC: EDH 20:44 → EDHIP 20:45 → 4BH 03-03 03:09
PROVIDERS: ADMIT Internal Medicine; ATTEND Internal Medicine
PROC: XW13325 Transfusion of Convalescent Plasma (Nonautologous) into Peripheral Vein, Percutaneous Approach, New Technology Group 5 (ICD-10-PCS; principal; 2020-03-03)
DX: U07.1 COVID-19 (principal); J96.01 Acute respiratory failure with hypoxia; J12.89 Other viral pneumonia; E87.1 Hypo-osmolality and hyponatremia; E11.65 Type 2 diabetes mellitus with hyperglycemia; I10 Essential (primary) hypertension; I45.10 Unspecified right bundle-branch block; E78.5 Hyperlipidemia, unspecified; Z91.19 Patient's noncompliance with other medical treatment and regimen; Z83.3 Family history of diabetes mellitus; Z82.49 Family history of ischemic heart disease and other diseases of the circulatory system
CPT/HCPCS: 36415; 36430; 36600; 70450; 71045; 71275; 80053; 81003; 82550; 82728; 82803; 82948; 83036; 83605; 83615; 83880; 84145; 84484; 85025; 85378; 85610; 85730; 86140; 86900; 86901; 86927; 87040; 93005; 99291; G0378; J0456; J0692; J0696; J1100; J1644; J1815; J2405; J3490; J7050; Q9967

== ENCOUNTER 2021-04-29 01:59 | Emergency (ER) | payer OTHER, SELFPAY ==
[~2021-04-29] VITALS: Ht 182.9 cm; Wt 117.9 kg
[~2021-04-29 01:59] MED LIST changes: -ENAL20TA PO; +ENAL20TA18 PO
[2021-04-29 02:05] VITALS: BP 153/93
[2021-04-29] MEDS ORDERED: AZITHROMYCIN 250 MG TABLET PO ONE ×2 (02:12→02:30)
[2021-04-29] MEDS ORDERED: GUAIFENESIN-CODEINE 5 ML SYRUP ONE ×2 (02:13→02:16)
[2021-04-29] MEDS ORDERED: DOXY-336 PO (02:15)
[2021-04-29] MEDS ORDERED: D-ME118S47 PO (02:15)
[2021-04-29] MEDS ORDERED: GUAIFENESIN-CODEINE 5 ML SYRUP PO ONE (02:30)
== END 2021-04-29 02:26 | disposition home or self-care (01) ==
LOC: EDH 01:59
DX: J22 Unspecified acute lower respiratory infection (principal); E11.9 Type 2 diabetes mellitus without complications; I10 Essential (primary) hypertension; Z79.01 Long term (current) use of anticoagulants; Z79.52 Long term (current) use of systemic steroids; Z79.84 Long term (current) use of oral hypoglycemic drugs; Z79.899 Other long term (current) drug therapy

== ENCOUNTER 2021-06-27 05:12 | Emergency (ER) | payer SELFPAY ==
[~2021-06-27] VITALS: Ht 177.8 cm; Wt 120.2 kg
[~2021-06-27 05:12] MED LIST changes: +D-ME118S47 PO; +DOXY-336 PO
[2021-06-27] MEDS ORDERED: AZITHROMYCIN 250 MG TABLET PO SCH (06:00)
[2021-06-27] MEDS ORDERED: BENZONATATE 100 MG CAPSULE PO SCH (06:00)
[2021-06-27] MEDS ORDERED: AZIT250T9 PO (06:03)
[2021-06-27] MEDS ORDERED: BENZ-39 PO (06:03)
[2021-06-27] MEDS ORDERED: ALBU8.5H8 IH (06:03)
[2021-06-27] MEDS ORDERED: BENZONATATE 100 MG CAPSULE PO ONE (06:19)
[2021-06-27] MEDS ORDERED: AZITHROMYCIN 250 MG TABLET PO ONE (06:20)
[2021-06-27 06:40] VITALS: BP 149/76
== END 2021-06-27 06:43 | disposition home or self-care (01) ==
LOC: EDH 05:12
DX: J40 Bronchitis, not specified as acute or chronic (principal); E11.9 Type 2 diabetes mellitus without complications; I10 Essential (primary) hypertension; Z79.01 Long term (current) use of anticoagulants; Z79.52 Long term (current) use of systemic steroids; Z79.84 Long term (current) use of oral hypoglycemic drugs; Z79.899 Other long term (current) drug therapy
CPT/HCPCS: 71046

== ENCOUNTER 2022-05-08 02:09 | Emergency (ER) | payer OTHER, SELFPAY ==
[~2022-05-08] VITALS: Ht 182.9 cm; Wt 119.3 kg
[~2022-05-08 02:09] MED LIST changes: +ALBU8.5H8 IH; +AZIT250T9 PO; +BENZ-39 PO
[2022-05-08] MEDS ORDERED: IBUP-1493 PO (03:03)
[2022-05-08] MEDS ORDERED: AMOX500T2 PO (03:03)
[2022-05-08 03:16] VITALS: BP 134/84
[2022-05-08] MEDS ORDERED: KETOROLAC 60 MG VIAL (30MG/ML) IM ONE (03:30)
== END 2022-05-08 03:43 | disposition home or self-care (01) ==
LOC: EDH 02:09
DX: K04.7 Periapical abscess without sinus (principal); E11.9 Type 2 diabetes mellitus without complications; I10 Essential (primary) hypertension; Z79.899 Other long term (current) drug therapy; Z79.84 Long term (current) use of oral hypoglycemic drugs
CPT/HCPCS: 99283; 96372; J1885